=== PATIENT | female | born 1950 | race African-American/Black ===

== ENCOUNTER 2017-09-27 16:21 | Inpatient (IN) ==
[2017-09-27 18:38] LABS: Basophils % 0.4 % (0.0-0.8); Eosinophils # 0.2 10*3/uL (0.0-0.87); Eosinophils % 3.5 % (0.00-10.9); Hematocrit 24.1 VOL% (35.7-47.0); Immature Granulocytes % 0.6 %; Immature Granulocytes Absolute 0.04 #; Lymphocytes # 0.9 10*3/uL (1.4-4.0); Lymphocytes % 13.7 % (21.3-54.2); Mean Corpuscular Hemoglobin 27 PG (27-34); Mean Corpuscular Volume 92.7 FL (87-102); Monocytes % 14.1 % (1.7-12.7); Neutrophils # 4.6 10*3/uL (1.4-7.4); Neutrophils % 67.7 % (38.7-73.9); Platelet Count 364 T/CUMM (130-400); Red Cell Distribution Width 18.8 % (9.3-17.3); White Blood Count 6.8 T/CUMM (4-12)
[2017-09-27 19:04] LABS: Albumin 3.9 G/DL (3.4-5.0); Bilirubin,Total 0.5 MG/DL (0.2-1.0); Osmolality,Calculated 272.1 MOS/KG (273-304); Potassium 4.3 MMOL/L (3.5-5.1); Total Protein 7.4 G/DL (6.4-8.3)
[2017-09-27 19:11] LABS: T4 (Thyroxine) 9.8 UG/DL (4.7-13.3); Thyroid Stimulating Hormone 1.4 uIU/ml (0.358-3.74)
[2017-09-27] MEDS ORDERED: SODIUM CHLORIDE 0.9% 1,000 ML IV PRN (19:41)
[2017-09-27] MEDS ORDERED: ONDANSETRON 4 MG/2 ML VIAL IV PRN (19:41)
[2017-09-27 19:46] LABS: INR 1.1; PT Patient Result 11.2 SECS; Partial Thromboplastin Time 29.3 SECS (0-40)
[2017-09-27 19:49] LABS: Apearance,Urine CLEAR (Clear); Bacteria,Urine Occasional /HPF (Few); Bilirubin,Urine Negative (Negative); Blood, Urine Negative (Negative); Glucose,Urine (UA) Negative (Negative); Ketones,Urine Negative (Negative); Nitrite,Urine Negative (Negative); Protein,Urine Negative; Squamous Epithelial Cell,Urine Occasional /HPF (0-10); Urine Color Straw (Yellow); Urine Specific Gravity 1.006 (1.001-1.035); Urine Urobilinogen < 2.0 EU/DL (0.2-1.0); WBC,Urine 2 /HPF (0-6)
[2017-09-27] MEDS ORDERED: DEXTROSE 50% 25 GM/50 ML VIAL IV PRN (19:52)
[2017-09-27] MEDS ORDERED: GLUCAGON 1 MG VIAL IM PRN (19:52)
[2017-09-27] MEDS ORDERED: ALBUTEROL 2.5 MG/3 ML NEB RESP TX PRN (21:33)
[2017-09-27] MEDS: INSULIN REGULAR 100 UNIT/ML SUBCUT SCH (21:42)
[2017-09-27] MEDS: ESCITALOPRAM 10 MG TABLET PO SCH (22:22)
[2017-09-28] MEDS ORDERED: FUROSEMIDE 40 MG/4 ML VIAL IV ONE (02:00)
[2017-09-28 06:57] LABS: Basophils % 0.6 % (0.0-0.8); Eosinophils # 0.3 10*3/uL (0.0-0.87); Eosinophils % 4.9 % (0.00-10.9); Hematocrit 27.3 VOL% (35.7-47.0); Hemoglobin 8.4 GM/DL (12.0-16.0); Immature Granulocytes % 0.2 %; Immature Granulocytes Absolute 0.01 #; Lymphocytes # 0.8 10*3/uL (1.4-4.0); Lymphocytes % 14.4 % (21.3-54.2); Mean Corpuscular HGB Conc 30.8 GM/DL (32-36); Mean Corpuscular Hemoglobin 28 PG (27-34); Mean Corpuscular Volume 90.7 FL (87-102); Mean Platelet Volume 8.8 FL (9.6-12.0); Monocytes # 0.9 10*3/uL (0.11-0.8); Monocytes % 16.1 % (1.7-12.7); Neutrophils # 3.4 10*3/uL (1.4-7.4); Neutrophils % 63.8 % (38.7-73.9); Platelet Count 307 T/CUMM (130-400); Red Blood Count 3.01 MC/CUMM (3.8-5.5); Red Cell Distribution Width 18.1 % (9.3-17.3); White Blood Count 5.3 T/CUMM (4-12)
[2017-09-28 07:26] LABS: Anisocytosis 1+; Band Neutrophils 1 % (0-10); Eosinophils 7 % (0-10); Hypochromasia 1+; Lymphocytes 13 % (20-55); Osmolality,Calculated 271.2 MOS/KG (273-304); Polychromasia Slight; Potassium 4.2 MMOL/L (3.5-5.1); Segmented Neutrophils 71 % (50-85); Tear Drop Cells Slight; Total Cells Counted 100
[2017-09-28 07:27] LABS: Microcytosis 1+; Ovalocytes Few; Platelet Estimate Normal
[2017-09-28] MEDS: SPIRONOLACTONE 25 MG TABLET PO SCH ×2 (09:26→15:39)
[2017-09-28] MEDS: FERROUS SULFATE 325 MG TABLET PO SCH ×2 (09:26→15:40)
[2017-09-28] MEDS: VERAPAMIL SR 240 MG TABLET PO SCH ×2 (09:26→15:40)
[2017-09-28] MEDS: LOSARTAN 50 MG TABLET PO SCH ×2 (09:26→15:39)
[2017-09-28] MEDS: FUROSEMIDE 40 MG TABLET PO SCH ×2 (09:26→15:40)
[2017-09-28] MEDS: INSULIN REGULAR 100 UNIT/ML SUBCUT SCH ×4 (09:26→22:22)
[2017-09-28] MEDS: ANASTROZOLE 1 MG TABLET PO SCH ×2 (09:26→15:42)
[2017-09-28] MEDS: MONTELUKAST 10 MG TABLET PO SCH ×2 (09:27→15:39)
[2017-09-28] MEDS: MAGNESIUM CHLORIDE 64 MG TABLET PO SCH ×2 (09:27→15:39)
[2017-09-28] MEDS: PANTOPRAZOLE 40 MG TABLET PO SCH ×2 (09:27→15:40)
[2017-09-28] MEDS: ASCORBIC ACID 500 MG TABLET PO SCH ×2 (09:27→15:39)
[2017-09-28] MEDS ORDERED: LIDOCAINE 1% 5 ML VIAL ONE (12:41)
[2017-09-28] MEDS ORDERED: PROPOFOL 200 MG/20 ML VIAL IV ONE (12:41)
[2017-09-28] MEDS ORDERED: SODIUM CHLORIDE 0.9% 1,000 ML IV PRN (12:51)
[2017-09-28] MEDS ORDERED: MORPHINE 2 MG/1 ML SYRINGE IV PRN (14:23)
[2017-09-28] MEDS ORDERED: ROSUVASTATIN 20 MG TABLET PO SCH (21:00)
[2017-09-28] MEDS: ESCITALOPRAM 10 MG TABLET PO SCH (21:37)
[2017-09-29 02:46] LABS: Hematocrit 30.7 VOL% (35.7-47.0); Hemoglobin 9.7 GM/DL (12.0-16.0)
[2017-09-29] MEDS: INSULIN REGULAR 100 UNIT/ML SUBCUT SCH ×2 (08:03→12:33)
[2017-09-29] MEDS: PANTOPRAZOLE 40 MG TABLET PO SCH (09:14)
[2017-09-29] MEDS: VERAPAMIL SR 240 MG TABLET PO SCH (09:14)
[2017-09-29] MEDS: LOSARTAN 50 MG TABLET PO SCH (09:14)
[2017-09-29] MEDS: MAGNESIUM CHLORIDE 64 MG TABLET PO SCH (09:14)
[2017-09-29] MEDS: SPIRONOLACTONE 25 MG TABLET PO SCH (09:15)
[2017-09-29] MEDS: FERROUS SULFATE 325 MG TABLET PO SCH (09:15)
[2017-09-29] MEDS: ASCORBIC ACID 500 MG TABLET PO SCH (09:15)
[2017-09-29] MEDS: MONTELUKAST 10 MG TABLET PO SCH (09:15)
[2017-09-29] MEDS: FUROSEMIDE 40 MG TABLET PO SCH (09:15)
[2017-09-29] MEDS: ANASTROZOLE 1 MG TABLET PO SCH (09:15)
[2017-09-29] MEDS ORDERED: MAGNESIUM CITRATE 300 ML BOTTLE PO ONE (10:29)
[2017-09-29 13:12] VITALS: BP 127/76
== END 2017-09-29 13:10 | disposition home or self-care (01) | DRG 813 ==
LOC: N.ED 16:21 → N.EDINP 19:41 → N.5E 20:52
PROVIDERS: ADMIT Internal Medicine; ATTEND Internal Medicine

== ENCOUNTER 2018-08-17 12:37 | Observation (INO) ==
[2018-08-17] MEDS ORDERED: ALBUTEROL/IPRATROPIUM 3 ML NEB RESP TX STA (15:36)
[2018-08-17 16:02] LABS: Basophils % 0.4 % (0.0-0.8); Eosinophils # 0.2 10*3/uL (0.0-0.87); Hematocrit 31.5 VOL% (35.7-47.0); Hemoglobin 9.7 GM/DL (12.0-16.0); Immature Granulocytes % 0.4 %; Immature Granulocytes Absolute 0.03 #; Mean Corpuscular HGB Conc 30.8 GM/DL (32-36); Mean Corpuscular Hemoglobin 26 PG (27-34); Mean Corpuscular Volume 85.4 FL (87-102); Mean Platelet Volume 9.5 FL (9.6-12.0); Monocytes # 1.2 10*3/uL (0.11-0.8); Monocytes % 16.6 % (1.7-12.7); Neutrophils # 4.7 10*3/uL (1.4-7.4); Neutrophils % 65.6 % (38.7-73.9); Platelet Count 255 T/CUMM (130-400); Red Blood Count 3.69 MC/CUMM (3.8-5.5); White Blood Count 7.1 T/CUMM (4-12)
[2018-08-17 16:21] LABS: Alanine Aminotransferase 12 U/L (13-56); Albumin 3.5 G/DL (3.4-5.0); Alkaline Phosphatase 101 U/L (45-117); Aspartate Amino Transferase 11 U/L (0-37); Bilirubin,Total < 0.39 MG/DL (0.2-1.0); Blood Urea Nitrogen 18 MG/DL (7-18); Calcium 8.6 MG/DL (8.5-10.1); Glucose 102 MG/DL (74-106); Osmolality,Calculated 267.4 MOS/KG (273-304); Potassium 4.9 MMOL/L (3.5-5.1); Sodium 133 MMOL/L (136-145); Total Protein 7.2 G/DL (6.4-8.3)
[2018-08-17] MEDS ORDERED: ONDANSETRON 4 MG/2 ML VIAL IV PRN (17:50)
[2018-08-17] MEDS ORDERED: FUROSEMIDE 40 MG/4 ML VIAL IV STA (17:51)
[2018-08-17] MEDS ORDERED: ALBUTEROL/IPRATROPIUM 3 ML NEB RESP TX PRN (17:52)
[2018-08-17] MEDS ORDERED: GLUCAGON 1 MG VIAL IM PRN (17:55)
[2018-08-17] MEDS ORDERED: DEXTROSE 50% 25 GM/50 ML VIAL IV PRN (17:55)
[2018-08-17] MEDS ORDERED: methylPREDNISolone SOD SUC 125 MG/2 ML VIAL IV STA (17:55)
[2018-08-17 18:18] LABS: Band Neutrophils 1 % (0-10); Eosinophils 3 % (0-10); Hypochromasia 1+; Lymphocytes 13 % (20-55); Microcytosis Slight; Platelet Estimate Normal; Segmented Neutrophils 67 % (50-85); Total Cells Counted 100
[2018-08-17] MEDS ORDERED: FUROSEMIDE 40 MG/4 ML VIAL ONE (19:14)
[2018-08-17] MEDS ORDERED: methylPREDNISolone SOD SUC 125 MG/2 ML VIAL ONE (19:14)
[2018-08-17] MEDS: INSULIN REGULAR 100 UNIT/ML SUBCUT SCH (20:04)
[2018-08-17] MEDS: ALBUTEROL/IPRATROPIUM 3 ML NEB RESP TX SCH (20:13)
[2018-08-17] MEDS ORDERED: ESCITALOPRAM 10 MG TABLET PO SCH (21:00)
[2018-08-17] MEDS: SULFAMETHOX/TRIMETHOPRIM 800-160 MG TABLET PO SCH (22:17)
[2018-08-18] MEDS: ALBUTEROL/IPRATROPIUM 3 ML NEB RESP TX SCH ×2 (01:22→07:49)
[2018-08-18] MEDS: APIXABAN 5 MG TABLET PO SCH ×2 (03:37→08:05)
[2018-08-18] MEDS: PANTOPRAZOLE 40 MG TABLET PO SCH ×2 (03:40→08:05)
[2018-08-18 05:42] LABS: Basophils % 0.1 % (0.0-0.8); Hematocrit 32.6 VOL% (35.7-47.0); Hemoglobin 9.9 GM/DL (12.0-16.0); Immature Granulocytes % 0.9 %; Immature Granulocytes Absolute 0.07 #; Lymphocytes # 0.7 10*3/uL (1.4-4.0); Lymphocytes % 9.1 % (21.3-54.2); Mean Corpuscular HGB Conc 30.4 GM/DL (32-36); Mean Corpuscular Hemoglobin 26 PG (27-34); Mean Corpuscular Volume 85.6 FL (87-102); Mean Platelet Volume 9.5 FL (9.6-12.0); Monocytes # 0.1 10*3/uL (0.11-0.8); Monocytes % 1.6 % (1.7-12.7); Neutrophils # 6.7 10*3/uL (1.4-7.4); Neutrophils % 88.3 % (38.7-73.9); Platelet Count 246 T/CUMM (130-400); Red Blood Count 3.81 MC/CUMM (3.8-5.5); Red Cell Distribution Width 15.1 % (9.3-17.3); White Blood Count 7.6 T/CUMM (4-12)
[2018-08-18 06:05] LABS: Calcium 8.9 MG/DL (8.5-10.1); Potassium 4.8 MMOL/L (3.5-5.1)
[2018-08-18] MEDS: INSULIN REGULAR 100 UNIT/ML SUBCUT SCH ×2 (07:41→10:51)
[2018-08-18] MEDS ORDERED: metFORMIN 500 MG TABLET PO SCH (08:00)
[2018-08-18] MEDS: SULFAMETHOX/TRIMETHOPRIM 800-160 MG TABLET PO SCH (08:06)
[2018-08-18 08:41] VITALS: BP 131/75
[2018-08-18] MEDS ORDERED: Umeclidinium Brm/Vilanterol Tr [Anoro Ellipta] INH SCH (09:00)
[2018-08-18] MEDS ORDERED: FERROUS SULFATE 325 MG TABLET PO SCH (09:00)
[2018-08-18] MEDS ORDERED: ROSUVASTATIN 20 MG TABLET PO SCH (09:00)
[2018-08-18] MEDS ORDERED: FUROSEMIDE 40 MG TABLET PO SCH (09:00)
[2018-08-18] MEDS ORDERED: ASCORBIC ACID 500 MG TABLET PO SCH (09:00)
[2018-08-18] MEDS ORDERED: SPIRONOLACTONE 25 MG TABLET PO SCH (09:00)
[2018-08-18] MEDS ORDERED: LOSARTAN 50 MG TABLET PO SCH (09:00)
[2018-08-18] MEDS ORDERED: ANASTROZOLE 1 MG TABLET PO SCH (09:00)
[2018-08-18] MEDS ORDERED: MONTELUKAST 10 MG TABLET PO SCH (09:00)
[2018-08-18] MEDS ORDERED: VERAPAMIL SR 240 MG TABLET PO SCH (09:00)
[2018-08-18] MEDS ORDERED: MAGNESIUM CHLORIDE 64 MG TABLET PO SCH (09:00)
== END 2018-08-18 11:36 | disposition home or self-care (01) ==
LOC: N.ED 12:37 → N.5E 12:37
PROVIDERS: ADMIT Hospitalist; ATTEND Hospitalist